=== PATIENT | male | born 1995 | race Caucasian/White ===

== ENCOUNTER 2017-03-05 20:47 | Emergency (ER) | payer BC ==
--- NOTE | 2017-03-05 21:20 | Emergency Department Record ---
History of Present Illness - General Chief Complaint: Shortness of breath Stated Complaint: ROXANA Time Seen by Provider: 03/05/17 21:14 Source: Patient Mode of Arrival: Ambulatory Limitations: No limitations - History of Present Illness Initial Comments: 21 yo male presents to ED with a CC of a "gurgling" to the chest that has been occurring intermittently for the past 6+ months. Patient reports that he feels the need to take a deep breath every 30 seconds or so when his symptoms occur. Patient denies any precipitating factors or anything that makes his symptoms worsen. Patient denies fevers, chills, coughing, wheezing, history of DVT or recent surgery/immobilization. Patient denies health problems at his baseline. MD Complaint: Shortness of breath Onset/Timin -: Month(s) Consistency: Intermittent Improves With: Nothing Worsens With: Nothing Associated Symptoms: Denies other symptoms Treatments Prior to Arrival: None - Related Data Home Oxygen Therapy: No Home Medications Medication Instructions Recorded Confirmed Last Taken No Home Med [NO HOME MEDS] 03/05/17 03/05/17 Unknown Allergies Allergy/AdvReac Type Severity Reaction Status Date / Time No Known Drug Allergies Allergy Verified 06/27/14 17:03 Travel Screening - Travel/Exposure Within Last 30 Days Have you traveled within the last 30 days?: No Review of Systems Constitutional: Denies: Chills, Fever, Malaise, Night sweats Eyes: Denies: Eye discharge, Eye pain ENT: Denies: Congestion, Ear pain, Epistaxis Respiratory: Reports: Dyspnea. Denies: Cough, Hemoptysis Cardiovascular: Denies: Chest pain, Dyspnea on exertion Endocrine: Denies: Fatigue, Heat or cold intolerance Gastrointestinal: Denies: Abdominal pain, Nausea, Vomiting Genitourinary: Denies: Incontinence, Retention Musculoskeletal: Denies: Arthralgia, Back pain, Gout, Joint swelling Skin: Denies: Bruising, Change in color Neurological: Denies: Abnormal gait, Confusion, Headache, Seizure Psychiatric: Denies: Anxiety Hematological/Lymphatic: Denies: Anemia, Blood Clots Past Medical History - SOCIAL HISTORY Smoking Status: Never smoker Alcohol Use: Rare Drug Use: None - RESPIRATORY Hx Respiratory Disorders: No - CARDIOVASCULAR Hx Cardio Disorders: No - NEURO Hx Neuro Disorders: No - GI Hx GI Disorders: No - Hx Genitourinary Disorders: No - ENDOCRINE Hx Endocrine Disorders: No - MUSCULOSKELETAL Hx Musculoskeletal Disorders: No - PSYCH Hx Psych Problems: No - HEMATOLOGY/ONCOLOGY Hx Hematology/Oncology Disorders: No Family Medical History Any Significant Family History?: Yes Hx Heart Disease: Grandparents *Heart Comment: PGF Physical Exam - General General Appearance: Alert, Oriented x3, Cooperative, No acute distress Limitations: No limitations - Head Head exam: Atraumatic, Normocephalic, Normal inspection Head exam detail: negative: Abrasion, Contusion, Greenberg's sign, General tenderness, Hematoma, Laceration - Eye Eye exam: Normal appearance. negative: Conjunctival injection, Periorbital swelling, Periorbital tenderness, Scleral icterus - ENT Ear exam: negative: Auricular hematoma, Auricular trauma Nasal Exam: negative: Active bleeding, Discharge, Dried blood, Foreign body Mouth exam: negative: Drooling, Laceration, Muffled voice, Tongue elevation - Neck Neck exam: Normal inspection. negative: Meningismus, Tenderness - Respiratory Respiratory exam: Normal lung sounds bilaterally. negative: Rales, Respiratory distress, Rhonchi, Stridor - Cardiovascular Cardiovascular Exam: Regular rate, Normal rhythm, Normal heart sounds - GI/Abdominal GI/Abdominal exam: Soft. negative: Rebound, Rigid, Tenderness - Rectal Rectal exam: Deferred - exam: Deferred - Extremities Extremities exam: Normal inspection. negative: Calf tenderness, Pedal edema, Tenderness - Back Back exam: Denies: CVA tenderness (R), CVA tenderness (L) - Neurological Neurological exam: Alert, Normal gait, Oriented X3 - Psychiatric Psychiatric exam: Normal affect, Normal mood - Skin Skin exam: Normal color. negative: Abrasion Type of lesion: negative: abrasion Course Vital Signs 03/05/17 20:51 Temperature 98.5 F Pulse Rate [ 67 Pulse Ox Probe] Respiratory 20 Rate Blood Pressure 140/81 [Left Arm] Pulse Ox 99 - Reevaluation(s) Reevaluation #1: 03/05/17 21:19 Patient seen and examined, PERC negative on exam, examination of the patient's lungs are normal on examination. Given the duration of symptoms, laboratory studies/EKG do not seem indicated. Will obtain CXR and re-evaluate. Reevaluation #2: 03/05/17 21:47 CXR: No acute process Patient was updated on radiology results, vitals appear normal, and the patient appears stable for discharge at this time. Disposition Disposition: Discharge Clinical Impression: Dyspnea Qualifiers: Dyspnea type: unspecified Qualified Code(s): R06.00 - Dyspnea, unspecified Disposition: Home, Self-Care Condition: (2) Stable Instructions: Dyspnea (ED) Additional Instructions: Return to ED if your symptoms worsen or if you have any concerns. Follow-up with your family doctor in 5-7 days for further evaluation of your symptoms. Forms: Patient Portal Access Time of Disposition: 21:21
== END 2017-03-05 21:52 | disposition home or self-care (01) ==
LOC: ER 20:47
DX: R06.00 Dyspnea, unspecified (principal)
CPT/HCPCS: 71020; 99283